=== PATIENT | male | born 1990 | race Caucasian/White ===

== ENCOUNTER 2018-04-05 18:24 | Emergency (ER) | payer MEDICAID ==
[~2018-04-05] VITALS: Ht 180.3 cm; Wt 94.5 kg
[2018-04-05 19:52] VITALS: BP 132/77
== END 2018-04-05 20:02 | disposition home or self-care (01) ==
LOC: EMS 18:24
DX: G51.0 Bell's palsy (principal)
CPT/HCPCS: 99283